=== PATIENT | female | born 1950 ===

== ENCOUNTER 2017-09-16 09:08 | Outpatient (CLI) | payer MEDICARE, OTHER ==
--- NOTE | 2017-09-16 11:27 | HP ---
DATE OF SERVICE: 09/16/2017 HISTORY OF PRESENT ILLNESS: Ms. Eve Newell is a very pleasant 66-year-old who [facility] of an ulceration of the plantar surface of the right medial foot. The parveen ent states that she wore a new pair of shoes on 08/25/2017 for one hour. She states that the followi day when she wore the new pair of shoes for 1 hour, she developed a lesion of her right medial marti t on the plantar surface of the foot. She states that she "pulled off a hunk of skin." She states t hat she subsequently bandaged the wound and changed shoes. She states that she began applying bacitr acin and Neosporin to the plantar wound. She states that she was seen by Dr. Foster and began dressin g changes of K-Y Jelly followed by a bandage. She states that she had swelling of her right foot and was prescribed Bactrim by Dr. Foster. The patient states that at a followup appointment with Dr. Novak, she was referred to [facility] for further evaluation and treatment. The patient states th at she has been utilizing a walker for offloading of her right plantar wound. She reports that adhes patricia applied to the skin of the plantar surface of her right foot resulted in lesions of the right lat eral plantar foot. PAST MEDICAL HISTORY: 1. Hypertension. 2. Coronary artery disease. 3. Diabetes mellitus. 4. Osteoarthritis. 5. History of hepatitis C, treated successfully. 6. Renal insufficiency. 7. Hypothyroidism. PAST SURGICAL HISTORY: 1. Gastric sleeve. 2. Bilateral knee replacement. 3. Left foot surgery x1 and right foot surgery x3. 4. Hysterectomy. 5. Cholecystectomy. 6. Surgery for ectopic . 7. . MEDICATIONS: 1. Prozac. 2. Victoza. 3. Humalog. 4. Calcium. 5. Vitamin C. 6. Vitamin D. 7. Multivitamin. 8. Pravastatin. 9. Aspirin 81 mg. 10. Coreg. 11. Irbesartan. 12. Synthroid. 13. Allopurinol. ALLERGIES: PENICILLIN, TETRACYCLINE, ERYTHROMYCIN. SOCIAL HISTORY: Significant for tobacco use for 3 years in College. The patient states that over th is period of time, she smoked up to 3 packs of cigarettes per day. The patient admits to the social consumption of alcohol beginning in high school. The patient states that she stopped drinking 25 yea rs ago. The patient states that although she did not consume alcohol daily, she admits to the heavy consumption of alcohol when drinking socially. FAMILY HISTORY: Significant for coronary artery disease. The patient states that her mother and fat her were both diagnosed with coronary artery disease. Family history is also significant for diabete s mellitus. The patient states that her father was diagnosed with diabetes mellitus. PHYSICAL EXAMINATION: VITAL SIGNS: Temperature 97.8, pulse 72, respirations 17, blood pressure 167/80. Accu-Chek 135. GENERAL: A 66-year-old female lying on table in examination room in no acute distress. HEENT: Normocephalic, atraumatic. NECK: No nuchal rigidity. CHEST: Clear to auscultation. CARDIAC: Regular rate and rhythm. ABDOMEN: Soft. EXTREMITIES: An ulceration of the plantar surface of the right medial foot is present which measures approximately 1.1 x 0.7 cm. The entire bed of the wound is covered by dry stable eschar. No serous or purulent drainage is associated with the wound. No erythema of the skin surrounding the wound is present. No maceration of the skin of the periwound is noted. A dorsalis pedis pulse is easily pal pable on the right. No significant edema of the right foot is present on exam today. NEUROLOGIC: Grossly nonfocal. ASSESSMENT AND PLAN: 1. Ulceration of plantar surface of right medial foot as described above. Dressing changes of Silve rcel, 4 x 4s and Coban will be initiated today. These dressing changes are to be performed on a adelina y basis after cleansing and irrigation. No antibiotics will be prescribed today based upon the appea lion of the wound. The patient has been reassured that the wound has almost healed completely and Rigoberto Newell will be discharged from clinic today with followup on a p.r.n. basis. The patient underst ands and is in agreement with the preceding treatment plan. 2. Hypertension. 3. Coronary artery disease. 4. Diabetes mellitus. The patient's Accu-Chek in clinic today is 135. The patient has been told th at for optimal wound healing, her blood glucoses should remain below 150. 5. Osteoarthritis. 6. History of hepatitis C treated successfully. 7. Renal insufficiency. 8. Hypothyroidism.
== END 2017-09-16 09:09 | disposition home or self-care (01) ==
LOC: WCC 09:08
PROVIDERS: ATTEND Family Medicine
DX: E11.621 Type 2 diabetes mellitus with foot ulcer (principal); L97.419 Non-pressure chronic ulcer of right heel and midfoot with unspecified severity; I10 Essential (primary) hypertension; I25.10 Atherosclerotic heart disease of native coronary artery without angina pectoris; M19.90 Unspecified osteoarthritis, unspecified site; N28.9 Disorder of kidney and ureter, unspecified; E03.9 Hypothyroidism, unspecified; Z86.19 Personal history of other infectious and parasitic diseases

== ENCOUNTER 2018-04-04 08:53 | Outpatient (CLI) | payer MEDICARE, OTHER ==
--- NOTE | 2018-04-04 10:43 | BD ---
DEXA BONE MINERAL DENSITY STUDY: HISTORY: Osteoporosis. COMPARISON: None. FINDINGS: Lumbar Spine: BMD (g/cm2) L1 1.009 T-Score: 0.2 1.8 L2 1.073 T-Score: 0.4 2.2 L3 1.124 T-Score: 0.4 2.2 L4 1.119 T-Score: 0.5 2.5 WHO classification is normal. Femoral Neck: 0.740 T-Score: -1.0 0.6 Total Femur: 0.898 T-Score: -0.4 0.9 WHO classification normal. Impression: Normal bone mineral density. POS: [facility]
== END 2018-04-04 08:54 | disposition home or self-care (01) ==
LOC: BICMAMMO 08:53
PROVIDERS: ATTEND Internal Medicine Rheumatology
DX: M81.0 Age-related osteoporosis without current pathological fracture (principal)
CPT/HCPCS: 77080